=== PATIENT | male | born 2005 | race Caucasian/White ===

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

== ENCOUNTER 2024-09-17 10:43 | Emergency (ER) | payer SELFPAY ==
[2024-09-17 10:46] VITALS: BP 107/76; PULSE 77; RESP 18; TEMP 36.7; O2SAT 100
--- NOTE | 2024-09-17 10:49 | ED.SKABFB ---
HPI - Skin/Abscess/Foreign Bdy General Chief complaint: Skin/Abscess/Foreign Body Stated complaint: Rash Time Seen by Provider: 09/17/24 10:44 Source: patient Mode of arrival: ambulatory Limitations: no limitations History of Present Illness HPI narrative: Antonio is a 18-year-old male patient presenting to the clinic today with complaints a rash x3 days. He reports he was cleaning out some brush 3 days ago and developed itchy raised blistered rash. States the is on his arms, legs, genitals, and on his face. Does have some right periorbital swelling. No visual changes or eye pain. Related Data Allergies Allergy/AdvReac Type Severity Reaction Status Date / Time No Known Allergies Allergy Verified 09/17/24 10:49 Review of Systems Review of Systems: Pertinent positives per HPI. Patient denies any fever, chills, headache, visual changes, dizziness, cough, runny nose, sore throat, shortness of breath, chest pain, palpitations, nausea, vomiting, diarrhea, constipation, abdominal pain, or any urinary issues. PMFSH Past Medical History Medical History No significant past medical history Surgical History Surgical History No significant past surgical history Family History Family History Other No significant family history Social History Social History Smoking status: Never smoker Alcohol intake: never Substance use: never Living arrangements: with family Comments At the time of my signature, I reviewed and agree with the nursing past medical, surgical, social, and family history. There is no relevant family history pertinent to the patient complaint. Exam Narrative: General: Well-developed, well nourished, in no apparent distress Head: Normocephalic, atraumatic. Cardio: Regular rate and rhythm, s1 and s2 normal, no murmur appreciated. Resp: Clear to auscultation bilaterally, no rhonchi, rales, wheezing or rubs. Integumentary: [place], warm, and dry, intact without lesion, red, raised, itchy, blistered rash to the arms, legs, genital area, and to the right side of his face-cheek and around right eye Course Course Emergency Course: Portions of this record may have been created with voice recognition software. Level of Care: [facility] Visit Vital Signs Vital signs: Vital Signs Temperature 36.7 C 09/17/24 10:46 Pulse Rate 77 09/17/24 10:46 Respiratory Rate 18 09/17/24 10:46 Blood Pressure 107/76 09/17/24 10:46 Pulse Oximetry 100 09/17/24 10:46 Oxygen Delivery Room Air 09/17/24 10:46 Temperature 36.7 C 09/17/24 10:46 Pulse Rate 77 09/17/24 10:46 Respiratory Rate 18 09/17/24 10:46 Blood Pressure 107/76 09/17/24 10:46 Pulse Oximetry 100 09/17/24 10:46 Oxygen Delivery Room Air 09/17/24 10:46 Vital signs reviewed MDM - Skin/Abscess/Foreign Bdy MDM Narrative Medical decision making narrative: At the time of visit patient is resting comfortably on the exam table. Patient appears to be nontoxic. Patient has poison dana dermatitis. Rash to arms, legs, groin, and face. Has periorbital swelling over the right eye. No visual changes. Will order dexamethasone 10 mg IM. Medications: Dexamethasone 10 mg IM Plan: I suspect patient has poison dana dermatitis. Dexamethasone 10 mg IM given in the clinic today. Will send in prescription for 10 day taper dose of prednisone and triamcinolone cream. Patient to start prednisone tomorrow. Supportive measures were discussed with the patient and they voiced understanding discharge instructions and agrees to treatment plan. Return precautions reviewed Differential Diagnosis Differential diagnosis: Likely abscess of skin or subcutaneous tissue, viral exanthem, dermatophytosis, urticaria, herpes zoster, allergic reaction to drug, cellulitis, eczema, insect bites, impetigo and contact dermatitis Discharge Plan Discharge Clinical Impression: Poison dana dermatitis Patient Disposition: Home Condition: Stable Instructions: Antibiotic Form, Poison Dana (ED) Additional Instructions: Dexamethasone 10 mg IM given in the clinic today Apply triamcinolone cream as directed Take prednisone as directed-start tomorrow 09/18/2024 Avoid hot showers May apply calamine lotion to rash Avoid scratching and this causes rash to spread May take benadryl 25-50mg every 6 hours as needed for itching. Follow up with your PCP in 3-5 days if symptoms persist or sooner if they worsen Go to the Emergency Room if symptoms worsen- fever, rash spreading with treatment, shortness of breath, tongue swelling, drooling, or chest pain Patient Language: Emirati Prescriptions: New prednisone 10 mg tablet 10 mg PO DAILY Qty: 30 0RF Rx Instructions: 60mg po daily on day 1, 40mg po daily on days 2-4, 30mg po daily on days 5-6, 20mg po daily on days 7-8, 10mg po daily on days 9-10 triamcinolone acetonide 0.1 % cream 1 applic topical BID 7 Days Qty: 30 0RF Follow-up/Referrals: PHYSICIAN,FLOOR [employer] [Primary Care Provider] - Time of Disposition: 10:56 Quality NIHSS Nursing Documentation ED NIHSS nursing documentation: reviewed/agree
[2024-09-17] MEDS: dexAMETHasone SOD PHOS INJ 10 MG/ML 1 ML VIAL IM (11:01)
== END 2024-09-17 11:21 | disposition home or self-care (01) ==
PROVIDERS: Emergency Provider Nurse Practitioner Family
DX: L23.7 Allergic contact dermatitis due to plants, except food (principal)
CPT/HCPCS: 96372; 99213; G0463; J1100